=== PATIENT | female | born 1980 | race Caucasian/White ===

== ENCOUNTER 2018-05-17 13:44 | Emergency (ER) | payer OTHER ==
[~2018-05-17] VITALS: Ht 175.3 cm; Wt 102.6 kg
[~2018-05-17 13:44] MED LIST: AZITHROMYCIN250 MG1 PO; BACTRIM,SEPT1 TABLET PO; HYCODAN SYRUP480 ML PO; KEFLEX500 MG PO; LEVAQUIN750 MG PO; NAPROSYN500 MG PO; NICOTINE PATCH1 EAC2 TD; NO HOME MED; PREDNISONE20 MG PO; PREDNISONE50 MG PO; TESSALON200 MG PO; TYLENOL WITH C1 EACH PO; VENTOLIN HFA18 GM IH; ZOFRAN4 MG PO
[2018-05-17 16:19] VITALS: BP 141/94
== END 2018-05-17 16:12 | disposition home or self-care (01) ==
LOC: EME 13:44
DX: O22.21 Superficial thrombophlebitis in pregnancy, first trimester (principal); I80.02 Phlebitis and thrombophlebitis of superficial vessels of left lower extremity; O99.331 Smoking (tobacco) complicating pregnancy, first trimester; F17.200 Nicotine dependence, unspecified, uncomplicated; Z3A.11 11 weeks gestation of pregnancy
CPT/HCPCS: 80048; 84702; 85025; 85610; 85730; 93971; 99281; 99283